=== PATIENT | female | born 1960 | race Caucasian/White ===

== ENCOUNTER 2022-07-12 00:49 | Emergency (ER) | payer OTHER, SELFPAY ==
--- NOTE | ~2022-07-12 | XR_ITS ---
Clinical Indication: Chest pain PA and lateral views of the chest: Comparison: None Findings: The lungs are clear, without evidence of focal consolidation or pleural effusion. Cardiome diastinal silhouette is within normal limits. Bones and soft tissues are unremarkable. Impression: Normal chest. Reviewed, dictated and finalized at location . Impression: Normal chest.
--- NOTE | 2022-07-12 00:50 | ECG_ITS ---
Measurements Intervals [place] Rate: 80 P: 19 NH: 155 QRS: -19 QRSD: 99 T: 19 QT: 380 QTc: 440 Interpretive Statements SINUS RHYTHM ATRIAL PREMATURE COMPLEX INCOMPLETE RIGHT BUNDLE BRANCH BLOCK DELAYED PRECORDIAL R/S TRANSITION INFERIOR INFARCT, AGE INDETERMINATE BASELINE ARTIFACT- I, II, III, AVL, AVF, V5 ABNORMAL ECG NO PREVIOUS ECG AVAILABLE FOR COMPARISON Electronically Signed On 07-12-2022 6:46:06 CDT by Onel Upton D.O.
[2022-07-12 00:54] VITALS: BP 143/96; PULSE 76; RESP 21; O2SAT 98
[2022-07-12 00:57] VITALS: BP 167/126; PULSE 84; RESP 20; O2SAT 98
--- NOTE | 2022-07-12 01:01 | ED.CHESTPAIN ---
HPI - Chest Pain General Chief Complaint: Chest Pain Stated Complaint: CP Time Seen by Provider: 07/12/22 00:52 History of Present Illness HPI narrative: Patient is a 62-year-old female with a history of hypertension presenting with chest pain. Patient states that she first had some chest pain yesterday morning. States that she assumed that she had just pulled a muscle so she did not think much of it. While she was sleeping tonight she awoke with chest pain in the middle of her chest that intermittently radiated to her back. Lasted for 30 to 40 minutes so she came in for evaluation. She denies shortness of breath, lightheadedness, palpitations, nausea, diaphoresis. States that taking a deep breath and coughing makes the pain worse. Currently, she states that the pain is mild and she declines pain medications. No numbness or weakness, cough, abdominal pain, leg swelling. Related Data Allergies Allergy/AdvReac Type Severity Reaction Status Date / Time No Known Allergies Allergy Verified 07/12/22 01:08 Review of Systems Review of Systems: All systems reviewed & are unremarkable except as noted in HPI and below Exam Narrative: GENERAL: Well-appearing, well-nourished, and in no acute distress. HEAD: Normocephalic, atraumatic. EYES: PERRLA and EOMI. ENT: Nares clear, no rhinorrhea or epistaxis. Mucous membranes moist. NECK: Supple. CHEST: Clear to auscultation. No respiratory distress. HEART: Regular rate and rhythm. No murmur heard. Normal peripheral pulses. ABDOMEN: Soft, nontender, nondistended. EXTREMITIES: Normal range of motion. No edema. SKIN: Warm, dry, no rash. NEURO: No focal deficits. Alert and oriented x3. PSYCH: Normal mood and affect. Course Vital Signs Vital signs: Vital Signs Pulse Rate 76 07/12/22 00:54 Respiratory Rate 21 H 07/12/22 00:54 Blood Pressure 143/96 H 07/12/22 00:54 Pulse Oximetry 98 07/12/22 00:54 Oxygen Delivery Room Air 07/12/22 00:54 Pulse Rate 78 07/12/22 04:50 Respiratory Rate 20 07/12/22 04:50 Blood Pressure 150/89 H 07/12/22 04:50 Pulse Oximetry 98 07/12/22 04:50 Oxygen Delivery Room Air 07/12/22 00:54 MDM - Chest Pain MDM Narrative Medical decision making narrative: Patient is a 62-year-old female presenting with chest pain. Patient is a bit hypertensive, otherwise vitals are within normal limits. Exam is remarkable for the above. EKG per my interpretation shows normal sinus rhythm, left axis deviation, occasional PAC, nonspecific T wave flattening, no ST elevations or depressions. No priors for comparison. D-dimer is wnl. Blood work is unremarkable. Trops are wnl. CXR without acute abnormalities. No consolidations, effusions, pneumothorax. Mediastinum appears normal. Doubt dissection given reassuring vital signs, well appearance, equal pulses, normal CXR. On re-evaluation, pt states her pain has resolved. States she had a slight twinge when she coughed earlier but otherwise feels back to baseline. Discussed the reassuring work-up. Do not suspect cardiac cause given the description of her pain, normal trops, nonischemic EKG, resolution of her symptoms. HEART score of 3. Advised close PCP f/u. Strict return precautions given. Discharged in stable condition. Differential Diagnosis Differential diagnosis: Likely pneumothorax, stable angina, atypical chest pain, st elevation myocardial infarction, costochondritis and chest pain Medical Records Data Attestation: I reviewed the patient's medical records. Lab Data Attestation: I reviewed the patient's lab results. 07/12/22 01:07 07/12/22 01:07 Labs: Lab Results 07/12/22 07/12/22 Range/Units 01:07 04:00 WBC 8.2 (4.5-10.0) K/mm3 RBC 4.24 (4.2-5.4) M/mm3 Hgb 13.0 (12.0-15.0) g/dL Hct 40.1 (37.0-47.0) % MCV 94.6 (80-100) fl MCH 30.7 (26-34) pg MCHC 32.4 (32-36) g/dl RDW 12.6 (11.5-14.5) % Plt Count 357 (150-375) k/mm3
[2022-07-12 01:02] VITALS: BP 143/96; PULSE 86; RESP 20; O2SAT 100
[2022-07-12] MEDS: ASPIRIN 81 MG CHEWABLE TABLET 324 MG PO (01:07)
[2022-07-12 01:15] LABS: Basophils Percent Auto 0.4 % (0.2-1.2); Eosinophils Absolute Auto 0.1 K/mm3 (0-0.3); Eosinophils Percent Auto 1.7 % (0-4.4); Hematocrit 40.1 % (37.0-47.0); Immature Granulocyte Absolute 0.02 K/mm3 (0.00-0.031); Immature Granulocyte Percent A 0.2 % (0-0.5); Lymphocytes Absolute Auto 3.21 K/mm3 (0.9-3.2); Lymphocytes Percent Auto 39.1 % (18.3-44.2); Mean Corpuscular HGB Conc 32.4 g/dl (32-36); Mean Corpuscular Hemoglobin 30.7 pg (26-34); Mean Corpuscular Volume 94.6 fl (80-100); Mean Platelet Volume 9.2 fl (7.4-10.4); Monocytes Absolute Auto 0.7 K/mm3 (0.1-0.6); Monocytes Percent Auto 8.5 % (2.6-8.5); Neutrophils Absolute Auto 4.1 K/mm3 (1.3-6.7); Neutrophils Percent Auto 50.1 % (45.5-73.1); Platelet Count Result 357 k/mm3 (150-375); Red Blood Count 4.24 M/mm3 (4.2-5.4); Red Cell Distribution Width 12.6 % (11.5-14.5); White Blood Count 8.2 K/mm3 (4.5-10.0)
[2022-07-12 01:25] LABS: INR 0.9; Prothrombin Time 12.7 Seconds (11.1-14.7)
[2022-07-12 01:27] LABS: Partial Thromboplastin Time 26.7 SECONDS (22.3-36.8)
[2022-07-12 01:28] LABS: Alanine Aminotransferase 25 U/L (6-35); Albumin Level 4.8 g/dL (3.5-5.1); Alkaline Phosphatase 85 U/L (38-126); Anion Gap 7 mmol/L (8-16); Aspartate Amino Transferase 25 U/L (14-36); Bilirubin,Total 0.3 mg/dL (0.2-1.3); Blood Urea Nitrogen 11 mg/dL (7-17); Calcium 9.4 mg/dL (8.4-10.2); Carbon Dioxide 30 mmol/L (22-30); Chloride 103 mmol/L (98-107); Estimated CRCL calculation 97 ml/min; Estimated Glomerular Filt Rate > 60; Glucose 96 mg/dL (65-110); Lipase 141 U/L (23-300); Sodium 140 mmol/L (137-145)
[2022-07-12 01:39] LABS: Troponin I < 0.012 ng/mL (0.000-0.034)
[2022-07-12 02:41] VITALS: BP 131/88; PULSE 75; RESP 16; O2SAT 97
[2022-07-12 04:30] LABS: Troponin I 0.019 ng/mL (0.000-0.034)
[2022-07-12 04:50] VITALS: BP 150/89; PULSE 78; RESP 20; O2SAT 98
== END 2022-07-12 04:58 | disposition home or self-care (01) ==
PROVIDERS: Emergency Provider Emergency Medicine
DX: R07.89 Other chest pain (principal); I10 Essential (primary) hypertension; I49.1 Atrial premature depolarization; I45.10 Unspecified right bundle-branch block; R94.31 Abnormal electrocardiogram [ECG] [EKG]
CPT/HCPCS: 36415; 71046; 80053; 83690; 84484; 85025; 85380; 85610; 85730; 93005; 99284; A9270